=== PATIENT | male | born 1975 | race Caucasian/White ===

== ENCOUNTER → 2020-01-08 | Outpatient (CLI) | payer SELFPAY ==
--- NOTE | 2020-01-08 16:43 | Diagnostic Imaging Report ---
Exam: MRI foot without contrast. Date: January 08, 2020. Indication: 44-year-old male, right foot ulcer in the region of the fifth toe. Comparison: None. Technique: Multiple noncontrast MRI sequences of the foot were obtained. Findings: There is a contour abnormality of the volar soft tissues at the level of the fifth metatarsophalangeal joint. There are soft tissue signal abnormalities both dorsally and volarly at this location including a focal area of T2 hyperintense signal on sagittal STIR sequence image 31 which measures 15 x 16 x 17 mm in size most suggestive of an abscess. There is T1 marrow signal loss and bone destruction involving the distal aspect of the fifth metatarsal as well as abnormal T1 marrow signal loss involving the fifth proximal phalanx. The extent of marrow signal abnormality in the fifth metatarsal extends 2.9 cm proximal to the distal articulating surface and involves the fifth proximal phalanx approximately 1.5 cm distal to its proximal articulating surface. The presence of osteomyelitis on both sides of the fifth metatarsal phalangeal joint does raise concern for septic arthritis although there is no joint effusion present. There is no otherwise noted joint effusion. The additional bone marrow signal is unremarkable. The visualized tendons are grossly intact. There is no identified fatty muscle atrophy. There is intramuscular edema which could relate to early denervation related changes and/or myositis. Impression: 1. Volar soft tissue ulcer at the level of the fifth metatarsophalangeal joint with adjacent fluid collection compatible with abscess measuring 16 x 15 x 17 mm in size. 2. Osteomyelitis involving the distal aspect of the fifth metatarsal and the fifth proximal phalanx, as described above. 3. Presence of osteomyelitis on both sides of the fifth metatarsophalangeal joint does raise concern for septic arthritis although no joint effusion is present. 4. Abnormal intramuscular edema within the visualized foot musculature without fatty muscle atrophy. This can be seen with denervation related signal changes and/or myositis. Dictated by: Dictated on workstation # [id number]
== END ==
LOC: RAD 14:00
PROVIDERS: ATTEND Podiatrist Foot & Ankle Surgery
DX: L97.519 Non-pressure chronic ulcer of other part of right foot with unspecified severity (principal); M86.8X7 Other osteomyelitis, ankle and foot

== ENCOUNTER 2020-01-20 05:34 | Outpatient (CLI) | payer SELFPAY ==
[~2020-01-20] VITALS: Ht 182.9 cm; Wt 126.9 kg
[2020-01-20] MEDS ORDERED: HYDR12.56 PO (11:34)
[2020-01-20] MEDS ORDERED: SITA50TA PO (11:34)
[2020-01-20] MEDS ORDERED: LISI10TA2 PO (11:34)
[2020-01-20] MEDS ORDERED: CEPH500T PO (11:34)
[2020-01-20] MEDS ORDERED: METF-397 PO (11:34)
[2020-01-20] MEDS ORDERED: ROSU10TA28 PO (11:34)
[2020-01-21] MEDS ORDERED: HYDR-4226 PO (09:23)
== END 2020-01-20 11:47 ==
LOC: PREOP 05:34
PROVIDERS: ATTEND Surgery
DX: Z01.818 Encounter for other preprocedural examination (principal); Z01.812 Encounter for preprocedural laboratory examination; M86.9 Osteomyelitis, unspecified; Z20.828 Contact with and (suspected) exposure to other viral communicable diseases
CPT/HCPCS: 87635

== ENCOUNTER 2020-01-21 06:16 | Day surgery (SDC) | payer OTHER ==
[2020-01-21] VITALS (11 sets, daily range): BP systolic 120–145; BP diastolic 76–97
[~2020-01-21] VITALS: Ht 182.9 cm; Wt 126.9 kg
[~2020-01-21 06:16] MED LIST: CEPH500T PO; HYDR12.56 PO; LISI10TA2 PO; METF-397 PO; ROSU10TA28 PO; SITA50TA PO
[2020-01-21] MEDS ORDERED: LACTATED RINGERS 1,000 ML IV PRN (06:43)
[2020-01-21] MEDS ORDERED: ceFAZolin 2 GM IV Premixed 50 ML IV ONE (06:45)
[2020-01-21] MEDS ORDERED: inSUlin (REGULAR) HUMAN 1 UNIT/0.01 ML (CHARGE PER UNIT) ONE (06:56)
[2020-01-21] MEDS ORDERED: proPOfol 200 MG/20 ML (DIPRIVAN) VIAL IV ONE (06:57)
[2020-01-21] MEDS ORDERED: ONDANSETRON 4 MG/2 ML (SDV) Z0FRAN ONE ×2 (06:57→09:21)
[2020-01-21] MEDS ORDERED: fentaNYL INJECTION 100 MCG/2 ML AMP ONE (06:57)
[2020-01-21] MEDS ORDERED: SEVOFLURANE (ULTANE) 15 ML INHAL SOLN ONE ×5 (06:57→09:19)
[2020-01-21] MEDS ORDERED: MIDAZOLAM 2 MG/2 ML (VERSED) VIAL ONE (06:57)
[2020-01-21] MEDS ORDERED: LIDOCAINE PF 2% 5 ML (XYLOCAINE) VIAL ONE (06:57)
[2020-01-21] MEDS ORDERED: BUP/EPI 0.25% 1:200,000 (MARCAINE) 30 ML VIAL ONE (07:07)
[2020-01-21] MEDS ORDERED: inSUlin (REGULAR) HUMAN 1 UNIT/0.01 ML (CHARGE PER UNIT) SC ONE (07:15)
--- NOTE | 2020-01-21 08:09 | Progress Note-Pre Operative ---
Pre-Operative Progress Note H&P Reviewed The H&P was reviewed, patient examined and no changes noted. Date Seen by Provider: Jan 21, 2020 Time Seen by Provider: 08:05 Date H&P Reviewed: Jan 21, 2020 Time H&P Reviewed: 08:05 Pre-Operative Diagnosis: right 5th toe osteomyelitis LEIDY GIRON DO Jan 21, 2020 08:09
--- NOTE | 2020-01-21 09:16 | Anesthesia-General Post-Op ---
General Patient Condition Mental Status/LOC: Same as Preop Cardiovascular: Satisfactory Nausea/Vomiting: Absent Respiratory: Satisfactory Pain: Controlled Complications: Absent Post Op Complications Complications None Follow Up Care/Instructions Patient Instructions None needed. Anesthesia/Patient Condition Patient Condition Patient is doing well, no complaints, stable vital signs, no apparent adverse anesthesia problems. No complications reported per nursing. STEPHANIE DANIELLE CRNA Jan 21, 2020 09:16
--- NOTE | 2020-01-21 09:22 | Progress Note-Post Operative ---
Post-Operative Progess Note Surgeon (s)/Shipping Receiving Clerk (s) Surgeon LEIDY GIRON DO Shipping Receiving Clerk: na Pre-Operative Diagnosis right 5th toe osteomyelitis Post-Operative Diagnosis same Procedure & Operative Findings Date of Procedure 01/21/20 Procedure Performed/Findings right ankle block right 5th toe amputation with partial 5 metatarsal amputation Anesthesia Type general Estimated Blood Loss Estimated blood loss (mL): minimal Specimens/Packing Specimens Removed right toe and 5th metatarsal LEIDY GIRON DO Jan 21, 2020 09:22
[2020-01-21] MEDS ORDERED: HYDR-4226 PO (09:23)
[2020-01-21] MEDS ORDERED: morphine INJ 10 MG/ML 1ML (SYR OR VIAL) ONE (09:32)
--- NOTE | 2020-01-21 09:36 | Discharge Inst-Simple/Standard ---
Discharge Inst-Standard Discharge Medications New, Converted or Re-Newed RX: RX on Chart Patient Instructions/Follow Up Plan of Care/Instructions/FU: See Dr. Montiel's nurse tomorrow. Tiana 2 weeks. Patient to call and get diabetic education set up at [facility]. Activity as Tolerated: No Discharge Diet: Regular Diet (diabetic) Other Inst to Patient Follow up Appt: See Dr. Montiel's nurse tomorrow. Tiana 2 weeks. Patient to call and get diabetic education set up at [facility] Instructions: No lifting greater than 10 pounds. No strenuous activity. May shower in 24 hours, no tub bath or soaking. Use incentive spirometer at home as directed. No Smoking Skin/Wound Care: Irrigate wound and pack with Iodoform guaze and cover with 4x4 and coban daily and as needed. Symptoms to Report: Appetite Changes, Extremity Discoloration, Numbness/Tingling, Swelling Increased, Bleeding Excessive, Eyesight Changes, Pain Increased, Urine Color Ch jseús, Constipation(Persistent), Fever over 101 degree F, Pain/Pressure in chest, Urinating Difficulty, Cough Up/Vomit Blood, Heart Beat Irreg/Pounding, Pain/Pressure in jaw, Vaginal Bleeding Increase, Cramps in feet or legs, Lightheadedness, Pain/Pressure in shoulder, Diarrhea(Persistent), Memory Changes Suddenly, Questions/Concerns, Weight gain consecutive days, Dizziness/Fainting, Nausea/Vomiting, Shortness of Breath, Weight gain over 2 pounds If questions or concerns contact your physician Or seek help at emergency department. LEIDY MONTIEL DO Jan 21, 2020 09:28
[2020-01-21] MEDS ORDERED: HYDROcodone/APAP 5 MG/325 MG (LORTAB) TAB PO PRN (10:45)
--- NOTE | 2020-01-22 04:37 | OPERATIVE REPORT ---
DATE OF SERVICE: 01/21/2020 PREOPERATIVE DIAGNOSIS: Osteomyelitis of right fifth toe and metatarsal. POSTOPERATIVE DIAGNOSIS: Osteomyelitis of right fifth toe and metatarsal. PROCEDURE: Right ankle block, 18 mL of local anesthetic 0.25% Marcaine with epinephrine, right fifth toe amputation, partial fifth right metatarsal amputation. SURGEON: Leidy Montiel DO ANESTHESIA: General with right ankle block. ESTIMATED BLOOD LOSS: Minimal. COMPLICATIONS: None. INDICATIONS: The patient is a 44-year-old male with a chronic wound to the right foot that has become abscessed and radiological studies demonstrating osteomyelitis of the right toe and distal metatarsal. The patient was discussed risks and benefits of procedure including incorporating the excision of two open draining areas and wishes to proceed. Consent was signed in the chart. DESCRIPTION OF PROCEDURE: The patient was taken to the operating suite, was prepped and draped in sterile fashion. Timeout was performed and elliptical incision was made over the lateral foot around the fifth toe incorporating incision around two draining openings in the skin. A 15 blade scalpel was used to cut down through the skin and into the subcutaneous tissues, which then cautery was then used to begin dissecting through the subcutaneous tissues down around the bone. From the wounds, a small amount of purulent material erupted and culture was obtained. The right fifth toe was then removed. The fifth metatarsal head was visualized and evidence of osteomyelitis was present. Dissection was then continued to be taken back proximally on the metatarsal bone until good healthy bone was visualized. A saw was then used to partially amputate the right fifth metatarsal bone. This was then sent for pathology as well. Hemostasis was achieved. The wound was then irrigated with copious amounts of irrigation with the power parachutist/combatant diver qualified. Once hemostasis was achieved, the wound was then packed with 1 inch iodoform and then sterile bandage was applied. The patient tolerated procedure well without complications. Prior to incision, a right ankle block was performed in the usual fashion injecting a total of 18 mL of 0.25% Marcaine with epinephrine to assist with postoperative pain control. Job ID: [id number] DocumentID: [id number] Dictated Date: 01/21/2020 19:46:11 Club Car Attendant Date: 01/22/2020 04:37:15 Dictated By: LEIDY MONTIEL DO [facility]
== END 2020-01-21 11:25 | disposition home or self-care (01) ==
LOC: SDC 06:16
PROVIDERS: ATTEND Surgery
DX: M86.171 Other acute osteomyelitis, right ankle and foot (principal); E11.69 Type 2 diabetes mellitus with other specified complication; I10 Essential (primary) hypertension; E66.9 Obesity, unspecified; Z68.37 Body mass index [BMI] 37.0-37.9, adult; Z79.84 Long term (current) use of oral hypoglycemic drugs; Z79.899 Other long term (current) drug therapy
CPT/HCPCS: 82962; 87070; 87075; 87076; 87077; 87081; 87186; 87205; 88304; 88305; 88311